=== PATIENT | female | born 1960 | race Caucasian/White ===

== ENCOUNTER 2025-05-04 13:45 | Emergency (ER) | payer MEDICARE, SELFPAY ==
--- NOTE | ~2025-05-04 | CT_ITS ---
CLINICAL HISTORY: WBC [id number] - previously injected for CTA chest(PE) CT abdomen and pelvis without contrast Comparison: None provided Findings: There is minimal atelectasis. The patient is status post cholecystectomy. The liver, pancreas, and adrenal glands are unremarkable. There are small splenic capsular calcifications. Spleen is otherwise unremarkable. There is excreted contrast in the renal collecting systems. There is no hydronephrosis. The appendix is normal. There is a lisxkuxm-ll-owtua amount of stool in the colon. The gastrointestinal tract is otherwise unremarkable. There is no free fluid, fluid collection, or free air. The aorta is normal in diameter. There are no enlarged lymph nodes. There is excreted contrast within the bladder. The bladder is otherwise unremarkable. There is no fracture or suspicious lytic or sclerotic lesion. IMPRESSION: 1. No acute abnormality in the abdomen or pelvis. 2. Peaheigp-ez-xkwtq amount of stool in the colon. Correlate for constipation. This document has been electronically signed by: Vimal Dhillon MD on 05/05/2025 00:48:16
--- NOTE | ~2025-05-04 | CT_ITS ---
CLINICAL HISTORY: PE r o CT angiography chest with contrast. 3D Postprocessing. Comparison: None provided Findings: The heart is normal size. RV/LV ratio is normal. Unremarkable thoracic aorta and great vessels. No aneurysm. No main or segmental pulmonary emboli identified. Hiatal hernia. No consolidation or effusion. Prior cholecystectomy. No acute fractures. Diffuse idiopathic skeletal hyperostosis IMPRESSION: 1. No main or segmental pulmonary emboli identified. This document has been electronically signed by: Bob Montana MD on 05/04/2025 22:52:23
--- NOTE | ~2025-05-04 | XR_ITS ---
EXAMINATION: XR CHEST CLINICAL INFORMATION: Pneumonia? COMPARISON: None available. TECHNIQUE: 2 views of the chest were obtained. FINDINGS: The cardiac, hilar, and mediastinal contours are normal. The lungs are clear bilaterally. There is no pneumothorax or pleural effusion. There is no focal osseous or soft tissue abnormality. There are cholecystectomy clips. XR/XR chest 2V IMPRESSION: No active pulmonary disease. Electronically signed by: Olvin Vallejo MD 05/04/2025 04:40 PM [facility]AZ
[2025-05-04 16:09] VITALS: BP 195/85; PULSE 136; RESP 18; TEMP 36.6; O2SAT 97; BMI 33.0
--- NOTE | 2025-05-04 16:14 | ECG_ITS ---
Test Reason : BREAST PAIN Blood Pressure : */* mmHG Vent. Rate : 134 BPM Atrial Rate : 134 BPM P-R Int : 154 ms QRS Dur : 100 ms QT Int : 292 ms P-R-T Axes : 38 -45 84 degrees QTcB Int : 436 ms Sinus tachycardia Left axis deviation Minimal voltage criteria for LVH, may be normal variant ( [place]lois product ) Anterior infarct , age undetermined Abnormal ECG No previous ECGs available Referred By: Mj Barrow Electronically Signed By: Gabriel Galarza
--- NOTE | 2025-05-04 16:15 | ED_ITS ---
HPI - General Adult General Chief complaint: Chest Pain Stated complaint: breast pain, arm pain, sent by PCP Time Seen by Provider: 05/04/25 20:20 History of Present Illness ED Provider: Matilde Boucher NP [facility] narrative: 64-year-old female medical history significant for hyperlipidemia, diabetes on metformin, hypertension, prior use of Ozempic but no longer on this medication presents to the ED with chief complaint of bilateral chest discomfort as well as radiation to the right arm and shoulder ongoing for about a week. She reports the pain began after traveling about 5-1/2 hours by car to [place]. No calf pain or tenderness, swelling. Patient reports dyspnea on exertion as well as right-sided chest discomfort, with radiation into the shoulder. There was no posterior shoulder pain. No shortness of breath at rest. Denies any substernal chest pain or pressure. No chest heaviness. No abdominal pain, nausea or vomiting, urinary complaints. Related Data Allergies Allergy/AdvReac Type Severity Reaction Status Date / Time codeine Allergy Unknown Verified 05/04/25 16:12 sulfamethoxazole (From Allergy Unknown Verified 05/04/25 16:12 Bactrim) trimethoprim (From Bactrim) Allergy Unknown Verified 05/04/25 16:12 Review of Systems 2 Review of Systems: ROS is otherwise negative unless mentioned in HPI. [facility] Social History Social History Alcohol intake: current Alcohol intake frequency: holidays/special occasions only Smoked in Last 30 Days: No Use of substances other than those prescribed or required for medical reasons: No Advance Directives: No Advance Directives Information Provided: No Do you have a plan to hurt others: No Plan Physical Exam ED Exam Exam: Nursing notes and vital signs reviewed. Constitutional: Well-appearing, NAD. Alert. Oriented X3. Eyes: EOMI. ENT: Pharynx normal. Neck: Normal inspection. Neck supple. CVS: Tachycardic heart rate and normal regular rhythm. Pulses normal. Respiratory: No respiratory distress. Breath sounds normal. Abdomen: Soft and nontender, nondistended. Skin: Skin warm and dry. Normal skin color. Extremities: No lower extremity edema. Neuro: Oriented X 3. No motor deficit. Vital Signs: Vital Signs - 24 hr 05/04/25 16:09 05/04/25 20:42 05/04/25 23:23 Temperature 98 F 99.8 F 98.6 F Pulse Rate 136 H 135 H 106 H Respiratory Rate 18 16 20 Blood Pressure 195/85 H 125/81 131/66 Pulse Oximetry 97 95 96 Oxygen Delivery Method Room Air 05/05/25 00:00 05/05/25 01:00 Temperature 98.6 F 98.6 F Pulse Rate 95 95 Respiratory Rate 20 20 Blood Pressure 131/66 131/66 Pulse Oximetry 96 96 Oxygen Delivery Method Room Air Room Air BMI result Body Mass Index 33.0 Course Course Course Narrative: RME: 64 year female presents to ED for breast pain arm pain and chest pain. Patient is found to be tachycardic in triage. Patient denies any URI symptoms. EKG labs ordered Reevaluation(s) Reevaluation #1: 3:59 AM 05/05/2025 (Bertha Brown MD): I saw this patient with the physician senior underwriting assistant. The patient is a very pleasant 64-year-old with a history of type 2 diabetes who presents with chest pains that has been bothering her for about 2 weeks. She has not had any fevers. Physical exam is unremarkable and she does not appear obviously ill. A CT scan to look for a pulmonary embolism has been done that was negative. [place] [id number]. She also has an elevated platelet count in the 600s. CRP is very elevated at 23. An abdominal CT was also obtained that does not show any explanation for the patient has abnormal labs. Ultimately I felt the patient looks well enough for discharge. I do not know why she has a leukocytosis, thrombocytosis, and a very elevated CRP but there was no evidence of an acute coronary syndrome pulmonary embolism, pneumonia, or other concerning finding that might be an explanation for symptoms she has had over the last few weeks. She looks quite well and I think she may be discharged. Perhaps she has some kind of an autoimmune disorder. She should follow up promptly with her PCP to discuss these findings. Medications Administered Discontinued Medications Generic Name Dose Route Start Last Admin Trade Name Freq PRN Reason Stop Dose Admin Acetaminophen 975 mg 05/04/25 20:27 05/04/25 20:46 Acetaminophen 325 Mg Tablet PO 05/04/25 20:28 975 mg ONCE ONE Administration Sodium Chloride 1,000 mls @ 999 mls/hr 05/04/25 20:21 05/04/25 23:33 Ns IV 05/04/25 21:21 Infused .Q1H1M ONE Infusion Iohexol 65 ml 05/04/25 22:03 05/04/25 22:06 Iohexol 350 Mg/Ml 100 Ml Infus..Btl IV 05/04/25 22:04 65 ml ONCE ONE Administration Ketorolac Tromethamine 15 mg 05/04/25 23:06 05/04/25 23:33 Ketorolac Tromethamine 15 Mg/Ml Vial IVPUSH 05/04/25 23:07 15 mg ONCE ONE Administration Medical Decision Making Medical Decision Making MDM Narrative: 8:31 PM 05/04/2025 (Matilde Boucher, LEXII): Upon my initial assessment of this patient, I have concern that she has significant leukocytosis to 18.3. This is nonspecific, I have nothing to correlate this with currently. Anemia at 11.14 hemoglobin. No prior. Her platelet counts also elevated at 631. The x-ray of the chest shows no acute pneumonia. She is tachycardic in the 130s. Without hypoxia. Afebrile. High clinical suspicion for PE. We will obtain a CTA of the chest PE rule out. Though also concerning for underlying infection given the leukocytosis. We will add on SARS. Will repeat troponin, initial is flat. EKG is sinus tachycardia. We will administer a fluid bolus. At this time I do not have clinical concern for sepsis. Will add blood cultures, lactic acid prophylactically. 11:24 PM-- CTA of the chest shows no evidence of PE, as well as no underlying infection. Viral panel was negative. Troponin is flat x2. This appears to be more musculoskeletal pain in nature in terms of the right-sided chest discomfort. She is agreeable with the discharge plan. She is no longer tachycardic, heart rates are in the low 90s. I do have suspicion that her tachycardia was related to anxiety about being in the hospital, as she was urged by her PCP to come for additional evaluation. She can take Tylenol, ibuprofen [id number] at home as needed for pain. She has now had 2- troponins, her proBNP is normal. There is no indication for additional workup. Her leukocytosis is nonspecific. Likely reactive. We will proceed with discharge plan, outpatient follow up with PCP. 11:38 PM-- I discussed the patient case with the attending provider and subsequently ordered a CRP level. This is also high, concerning for underlying malignancy of some sort. There is a small, circular nonspecific rash on the right upper quadrant of the abdomen. Her abdominal exam is benign. With concern for underlying malignancy, we will proceed with a noncontrast CT imaging of the abdomen, pelvis and reassess. 12:53 AM: The CT of the abdomen, pelvis shows no acute pathology. She may have an underlying autoimmune disease. We will proceed with discharge plan as previously discussed with close outpatient follow up with primary care. Patient is agreeable. Differential Diagnosis Differential Diagnoses: The differential diagnosis associated with the presentation includes PE, multifocal pneumonia, viral illness Admission/Observation Consideration of admission/observation: Escalation of care including admission/observation considered Lab Data MDM Lab Attestation statement: I reviewed the patient's lab results. (Leukocytosis to 18.) 05/04/25 16:25 05/04/25 16:25 Labs: Lab Results 05/04/25 05/04/25 05/04/25 Range/Units 16:25 20:58 21:18 WBC 18.3 H (4.8-10.8) X10*3/uL RBC 3.99 L (4.20-5.50) X10*6/uL Hgb 11.1 L (12.0-16.0) g/dl Hct 34.9 L (37.0-47.0) % MCV 87.5 (80.0-98.0) fL MCH 27.8 (27.0-33.0) pg MCHC 31.8 (31.0-35.0) g/dl RDW 12.8 (11.0-16.0) % Plt Count 631 H (160-400) X10*3/uL MPV 7.7 L (9.4-12.3) fL Immature Gran % (Auto) 4.1 H (0.0-0.4) % Neut % (Auto) 76.2 H (45-73) % Lymph % (Auto) 9.1 L (20-40) % [place] % (Auto) 8.2 (2-11) % Eos % (Auto) 1.8 (0-4) % Baso % (Auto) 0.6 (0-2) % Lymph # (Auto) 1.7 (1.2-4.9) X10*3/uL [place] # (Auto) 1.5 H (0.1-1.2) X10*3/uL Eos # (Auto) 0.3 (0.0-0.4) X10*3/uL Baso # (Auto) 0.1 (0.0-0.2) X10*3/uL Abs Immat Gran (auto) 0.75 H (0.00-0.03) X10*3/uL Absolute Neuts (auto) 13.9 H (2.0-8.3) x10*3/uL Absolute Nucleated RBC 0.000 (0.0-0.012) X10*3/uL Nucleated RBC % (auto) 0.0 (0.0-0.2) /100WBC Neutrophils % (Manual) 81 H (45-73) % Band Neutrophils % 0 L (3-5) % Lymphocytes % (Manual) 9 L (20-40) % Atypical Lymphs % (Man) 1 (0-6) % Monocytes % (Manual) 9 (2-11) % Abs Neuts (Manual) 14.8 H (2.0-8.3) X10*3/uL Lymphocytes # (Manual) 1.6 (1.2-4.9) X10*3/uL Atyp Lymphs # (Manual) 0.2 x10*3/uL Monocytes # (Manual) 1.6 H (0.1-1.2) X10*3/uL Toxic Granulation PRESENT Toxic Vacuolation PRESENT Platelet Estimate INCREASED (NORMAL) Large Platelets PRESENT Plt Morphology Comment NOTED RBC Morphology NOTED [place] Cells 2+ (3-5) /OIF PT 14.5 H (11.2-13.5) SEC INR 1.2 H (0.9-1.1) APTT 35.2 H (26.7-34.1) SEC Sodium 137 (135-145) mmol/L Potassium 3.8 (3.3-5.1) mmol/L Chloride 102 (96-108) mmol/L Carbon Dioxide 17 L (22-29) mmol/L Anion Gap 22 H (12-20) BUN 14 (9-16) mg/dL Creatinine 0.80 (0.5-1.4) mg/dL Estim Creat Clear Calc 63.2 Estimated GFR > 60 Random Glucose 114 (60-115) mg/dL Lactic Acid 1.0 (0.5-2.0) mmol/L Calcium 11.0 H (8.4-10.2) mg/dL Total Bilirubin 0.3 (0.0-1.0) mg/dL AST 19 (5-31) U/L ALT < 6 (0-31) U/L Alkaline Phosphatase 45 (39-117) U/L Troponin I High Sens 4.7 5.9 (<3.5-17.0) ng/L C-Reactive Protein 29.51 H (< or = 0.50) mg/dL NT-Pro-B Natriuret Pep 198.8 (<300) pg/mL Total Protein 7.3 (6.5-8.0) g/dL Albumin 3.4 L (3.5-5.0) g/dL Urine Color Urine Appearance Urine pH (5.0-9.0) Ur Specific [place] (1.005-1.025) Urine Protein (Neg-Trace) mg/dL Urine Glucose (UA) (Negative) mg/dL Urine Ketones (Negative) mg/dL Urine Blood (Negative) Urine Nitrite (Negative) Ur Leukocyte Esterase (Negative) Urine RBC (0-2) /HPF Urine WBC (0-5) /HPF Ur Squamous Epith Cells (0-2) /HPF Urine Bacteria (None Seen) Hyaline Casts (0-2) /LPF Influenza Type A (PCR) NEGATIVE (Negative) Influenza Type B (PCR) NEGATIVE (Negative) RSV RNA Qual (PCR) NEGATIVE (Negative) SARS-CoV-2 RNA (RT-PCR) NEGATIVE (Negative) 05/05/25 Range/Units 00:59 WBC (4.8-10.8) X10*3/uL RBC (4.20-5.50) X10*6/uL Hgb (12.0-16.0) g/dl Hct (37.0-47.0) % MCV (80.0-98.0) fL MCH (27.0-33.0) pg MCHC (31.0-35.0) g/dl RDW (11.0-16.0) % Plt Count (160-400) X10*3/uL MPV (9.4-12.3) fL Immature Gran % (Auto) (0.0-0.4) % Neut % (Auto) (45-73) % Lymph % (Auto) (20-40) % [place] % (Auto) (2-11) % Eos % (Auto) (0-4) % Baso % (Auto) (0-2) % Lymph # (Auto) (1.2-4.9) X10*3/uL [place] # (Auto) (0.1-1.2) X10*3/uL Eos # (Auto) (0.0-0.4) X10*3/uL Baso # (Auto) (0.0-0.2) X10*3/uL Abs Immat Gran (auto) (0.00-0.03) X10*3/uL Absolute Neuts (auto) (2.0-8.3) x10*3/uL Absolute Nucleated RBC (0.0-0.012) X10*3/uL Nucleated RBC % (auto) (0.0-0.2) /100WBC Neutrophils % (Manual) (45-73) % Band Neutrophils % (3-5) % Lymphocytes % (Manual) (20-40) % Atypical Lymphs % (Man) (0-6) % Monocytes % (Manual) (2-11) % Abs Neuts (Manual) (2.0-8.3) X10*3/uL Lymphocytes # (Manual) (1.2-4.9) X10*3/uL Atyp Lymphs # (Manual) x10*3/uL Monocytes # (Manual) (0.1-1.2) X10*3/uL Toxic Granulation Toxic Vacuolation Platelet Estimate (NORMAL) Large Platelets Plt Morphology Comment RBC Morphology [place] Cells /OIF PT (11.2-13.5) SEC INR (0.9-1.1) APTT (26.7-34.1) SEC Sodium (135-145) mmol/L Potassium (3.3-5.1) mmol/L Chloride (96-108) mmol/L Carbon Dioxide (22-29) mmol/L Anion Gap (12-20) BUN (9-16) mg/dL Creatinine (0.5-1.4) mg/dL Estim Creat Clear Calc Estimated GFR Random Glucose (60-115) mg/dL Lactic Acid (0.5-2.0) mmol/L Calcium (8.4-10.2) mg/dL Total Bilirubin (0.0-1.0) mg/dL AST (5-31) U/L ALT (0-31) U/L Alkaline Phosphatase (39-117) U/L Troponin I High Sens (<3.5-17.0) ng/L C-Reactive Protein (< or = 0.50) mg/dL NT-Pro-B Natriuret Pep (<300) pg/mL Total Protein (6.5-8.0) g/dL Albumin (3.5-5.0) g/dL Urine Color Yellow Urine Appearance Clear Urine pH 5.5 (5.0-9.0) Ur Specific [place] >= 1.030 H (1.005-1.025) Urine Protein 30 (1+) H (Neg-Trace) mg/dL Urine Glucose (UA) >=1000 H (Negative) mg/dL Urine Ketones >=160 (Negative) mg/dL Urine Blood Negative (Negative) Urine Nitrite Negative (Negative) Ur Leukocyte Esterase Negative (Negative) Urine RBC 0-2 (0-2) /HPF Urine WBC 0-5 (0-5) /HPF Ur Squamous Epith Cells 0-2 (0-2) /HPF Urine Bacteria None Seen (None Seen) Hyaline Casts 0-2 (0-2) /LPF Influenza Type A (PCR) (Negative) Influenza Type B (PCR) (Negative) RSV RNA Qual (PCR) (Negative) SARS-CoV-2 RNA (RT-PCR) (Negative) Independent Interpretation I performed an independent interpretation of an: EKG Interpretation: Rate: 134 Rhythm: Sinus tachycardia [place]: 38/-45/84 Normal P waves. Normal ANDIE. Normal QRS complex. ST T wave : no dep, elev qTC: 436 prior studies: none previous for comparison The study has been interpreted contemporaneously by me. L I have reviewed the patient's imaging and agree with the radiologist's findings. Radiology Impression Discussion of test interpretation with radiology: I have reviewed the radiologist's reading. Radiologist Impression: CT Abdomen/Pelvis WO IMPRESSION: 1. No acute abnormality in the abdomen or pelvis. 2. [id number]-[id number] amount of stool in the colon. Correlate for constipation. CTA Chest IMPRESSION: 1. No main or segmental pulmonary emboli identified. XR/XR chest 2V IMPRESSION: No active pulmonary disease. Independent Historian Clinical information obtained from an independent historian. History obtained from or confirmed by: Friend External Record Review None available Chronic Conditions Patient?s care impacted by: Hypertension and Other (HLD) Social Determinants Patient?s care significantly limited by Social Determinants of Health including: Problems related to primary support group Discharge Plan Discharge Clinical Impression: Atypical chest pain Patient Disposition: Home, Self-Care Instructions: Chest Wall Pain (ED) Additional Instructions: As we discussed, your workup today was overall reassuring. You had a CT of the chest which showed no evidence of blood clots, or pneumonia. We also obtained a CT of your abdomen, pelvis which showed no acute abnormality. In discussion with your provider, please discuss that you had an elevated white blood cell count. This is very nonspecific, and may be due to stress on the body. Please have this rechecked within 1 week. Additionally, your platelet count was noted to be elevated at 631. Please also have this rechecked outpatient. Your CRP level was also high. The cause is unclear. Your viral panel was negative for COVID, flu, RSV. Please discuss all of this information with your primary care provider. You may have underlying autoimmune disease that needs additional workup. With any worsening complaints at any time, please seek re-evaluation in the ED. Referrals: Little Stark PA [Primary Care Provider, Internal Medicine] Interventions: ED Discharge Assessment Last Done: 05/05/25 01:00 Discharge Date/Time: 05/05/25 01:18 Print Language: Setswana
[2025-05-04 16:29] LABS: MANUAL DIFF FLAG NO
[2025-05-04 16:32] LABS: Hematocrit 34.9 % (37.0-47.0); Hemoglobin 11.1 g/dl (12.0-16.0); Imm Gran Abs Auto 0.75 X10*3/uL (0.00-0.03); Imm Gran Pct Auto 4.1 % (0.0-0.4); Lymphocytes Absolute Auto 1.7 X10*3/uL (1.2-4.9); Mean Corpuscular HGB Conc 31.8 g/dl (31.0-35.0); Mean Corpuscular Hemoglobin 27.8 pg (27.0-33.0); Mean Corpuscular Volume 87.5 fL (80.0-98.0); NRBC Abs Auto 0.000 X10*3/uL (0.0-0.012); NRBC Pct Auto 0.0 /100WBC (0.0-0.2); Platelet Count 631 X10*3/uL (160-400); Red Blood Count 3.99 X10*6/uL (4.20-5.50); White Blood Count 18.3 X10*3/uL (4.8-10.8)
[2025-05-04 16:36] LABS: INTERNATIONAL NORM RATIO 1.2 (0.9-1.1); Prothrombin Time 14.5 SEC (11.2-13.5)
[2025-05-04 16:38] LABS: Partial Thromboplastin Time 35.2 SEC (26.7-34.1)
[2025-05-04 16:58] LABS: Alanine Aminotransferase < 6 U/L (0-31); Albumin Level 3.4 g/dL (3.5-5.0); Alkaline Phosphatase 45 U/L (39-117); Anion Gap 22 (12-20); Aspartate Amino Transferase 19 U/L (5-31); Blood Urea Nitrogen 14 mg/dL (9-16); Calcium 11.0 mg/dL (8.4-10.2); Carbon Dioxide 17 mmol/L (22-29); Chloride 102 mmol/L (96-108); Creatinine Clr Calc Pharmacy 63.2; Estimated Glomerular Filt Rate > 60; Potassium 3.8 mmol/L (3.3-5.1); Sodium 137 mmol/L (135-145); Total Protein 7.3 g/dL (6.5-8.0)
[2025-05-04 17:06] LABS: Troponin-I High Sensitivity 4.7 ng/L (<3.5-17.0)
[2025-05-04 17:17] LABS: NT Pro B Type Natriuretic Pept 198.8 pg/mL (<300)
--- OUTSIDE RECORDS SUMMARY | 2025-05-04 20:36 | XMS_ITS ---
Author Name [facility] Organization Unknown History of Medication Use Medication Directions Dispensed Refills Start Date End Date Stat us OMEprazole (PriLOSEC) 20 MG capsule TAKE 1 CAPSULE BY MOUTH EVERY DAY IN THE MORNING BEFORE BREAKFAST 09/05/2023 active lisinopril (PRINIVIL,ZeSTRIL) 2.5 MG tablet Take 1 tablet (2.5 mg total) by mouth daily. 08/13/2023 active atorvastatin (LIPITOR) 10 MG tablet Take 1 tablet (10 mg total) by mouth daily. 12/04/2021 active Gavilyte-C 240 gram-22.72 gram-6.72 gram-5.84 gram oral solution TAKE 8 OUNCE BY MOUTH DIRECTED TAKE 8 GLASSES EVERY 15-20 MINUTES UNTIL DONE 04/30/2022 completed pioglitazone 15 mg tablet 04/30/2022 completed pioglitazone 30 mg tablet 04/30/2022 completed azithromycin 250 mg tablet TAKE 2 TABLETS BY MOUTH TODAY, THEN TAKE 1 TABLET DAILY FOR 4 DAYS 01/22/2021 completed ProAir HFA 90 mcg/actuation aerosol inhaler 01/21/2020 completed albuterol sulfate HFA 90 mcg/actuation aerosol inhaler INHALE 2 PUFFS BY MOUTH EVERY 6 HOURS NEEDED FOR WHEEZE active amoxicillin 500 mg capsule TAKE 1 CAPSULE BY MOUTH EVERY 8 HOURS AROUND THE CLOCK active atorvastatin 10 mg tablet TAKE 1 TABLET ONCE DAILY active Basaglar KwikPen U-100 Insulin 100 unit/mL (3 mL) subcutaneous INJECT 16 UNITS EVERY NIGHT AT BEDTIME active Dexcom G7 Sensor device USE TO CHECK SUGAR active glipizide 5 mg tablet TAKE 1 & 1/2 TABLETS BY MOUTH IN THE MORNING, TAKE 2 TABLETS IN THE EVENING active glyburide 5 mg tablet TAKE 1 AND 1/2 TABLETS BY MOUTH EVERY MORNING AND 2 TABLETS EVERY NIGHT active Jardiance 25 mg tablet TAKE 1 TABLET ONCE DAILY ASDIRECTED. active Lantus Solostar U-100 Insulin 100 unit/mL (3 mL) subcutaneous pen INJECT 16 UNITS DAILY DIRECTED active lisinopril 2.5 mg tablet active metformin 1,000 mg tablet active omeprazole 20 mg capsule,delayed release TAKE 1 CAPSULE BY MOUTH EVERY DAY IN THE MORNING BEFORE BREAKFAST active albuterol (PROVENTIL HFA; VENTOLIN HFA) 108 (90 Base) MCG/ACT inhaler Inhale 2 puffs 4 times daily (every 6 hours) as needed. active Cetirizine HCl (ZyrTEC Allergy) 10 MG Cap Take 10 mg by mouth daily. active empagliflozin (Jardiance) 25 MG tablet Take 1 tablet (25 mg total) by mouth daily. active glyBURIDE (DIAbeta) 5 mg tablet 1.5 tabs po in am and 2 tabs po in pm active insulin glargine (insulin glargine, BASAGLDWAIN CORCORANIKPEN,) 100 units/mL prefilled pen injection Inject 16 Units under the skin daily. active metFORMIN (GLUCOPHAGE) 1000 MG tablet Take 1 tablet (1,000 mg total) by mouth 2 times a day. active Allergies Allergen Reaction Severity Comment Documented Date Source Statu s SULFA ANTIBIOTICS UNKNOWN/PATIENT AND FAMILY UNABLE TO DEFINE 08/13/2023 [facility] active CODEINE UNKNOWN/PATIENT AND FAMILY UNABLE TO DEFINE [facility] DULAGLUTIDE NAUSEA ONLY [facility] BACTRIM [facility] SUBSTANCE WITH SULFONAMIDE STRUCTURE AND ANTIBACTERIAL MECHANISM OF ACTION (SUBSTANCE) [facility] Problems Problem Status Onset Date Problem Type Date of Resoluti on Source Calcific tendinitis of shoulder active 2022-03-05 ProblemAct [facility] Polyp of colon active 2022-03-[address] Type 2 diabetes mellitus active 2022-03-05 ProblemAct [facility] Mixed hyperlipidemia active 2022-03-05 ProblemAct [facility] Immunizations Vaccine Date Source Lot Number Status Influenza, MDCK, quadrivalent, PF 03/07/2023 [facility] [id number] completed Pneumococcal conjugate PCV20 , polysaccharide [id number] conjugate, adjuvant, PF 12/18/2022 [facility] c ompleted zoster recombinant 05/20/2022 [facility] comple malka zoster recombinant 12/18/2021 [facility] comple malka Tdap 12/15/2021 [facility] completed Influenza Inactivated/Split Preservative Free IM 02/10/2020 [facility] completed pneumococcal polysaccharide PPV23 09/29/2010 [facility] completed Encounters Encounter Type Encounter Reason Primary Diagnosis Location Date Ambulatory Follow-up Follow-up [facility] 01/27/2025 Ambulatory 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 [facility] 05/08/2023 Ambulatory Encounter for screening mammogram for malignant neoplasm of breast [facility] 09/04/2022 Ambulatory [facility] 05/03/2022 Ambulatory Encounter for screening mammogram for malignant neoplasm of breast [facility] 04/26/2021 Ambulatory [facility] 01/25/2021 Care Team Organization Name Specialty Phone Email Start Date End Da te [facility] DONALD Primary Care 01/27/2025 [facility] ANIKA BENNETT Primary Care 08/13/2023 [employer] BRUNILDA REYES Primary Care 04/26/2021 02/26/20 [facility] BRUNILDA REYES Primary Care 04/26/2021 04/26/20 21 [facility] 02/15/2021 [facility] 01/25/2021 01/25/2021
--- OUTSIDE RECORDS SUMMARY | 2025-05-04 20:36 | XMS_ITS | Encounter Summary ---
Author Organization [facility] Address [address] [place] [address] Care Team Providers Care Wool Handler Name Role Phone Little Stark PA-C Primary Care Provi harpreet Fabiana Rodríguez MD Unavailable [phone]- [phone] Encounter Details Date Type Department Care Team (Late st Contact Info) Description 06/18/2024 Scanned Document [facility] [address] [place] [address] Endocrinology, Scan Social History Tobacco Use Types Packs/Day Years Used Date Smoking Tobacco: Never Smokeless Tobacco: Never Alcohol Use Standard Drinks/Week Comments Not Currently 0 (1 standard drink = 0.6 oz pur e alcohol) [facility] Utilities Answer Date Recorded In the past 12 months has [facility] electric, gas, oil, or water company threatened to shut off services in your home? No 04/06/2024 Social Connection and Isolation Panel Answer Date Recorded In a typical week, how many times do you talk on the phone with family, friends, or neighbors? Once a week 04/06/2024 Frequency of Social Gatherings with Friends and Family Not on file 04/06/2024 Attends [employer] Services Not on file 04/06 Active Member of Clubs or Organizations Not on f ile 04/06/2024 Attends Club or Organization Meetings Not on aishwarya e 04/06/2024 Marital Status Not on file 04/06/2024 AUDIT-C Answer Date Recorded Q1: How often do you have a drink containing alcohol? Monthly or less 04/06/2024 Q2: How many drinks containi ng alcohol do you have on a typical day when you are drinking? Patient does not drink Frequency of Binge Drinking Not on file 03/20 PHQ-2 Answer Date Recorded PHQ-2 Total Score 0 12/26/2023 Hunger Vital Sign Answer Date Recorded Within the past 12 months, y ou worried that your food would run out before you got the money to buy more. Never true 04/06/20 24 Within the past 12 months, t he food you bought just didn't last and you didn't have money to get more. Never true 04/06/2024 PRAPARE - Transportation Answer Date Re corded In the past 12 months, has l ack of transportation kept you from medical appointments or from getting medications? No 03/20 In the past 12 months, has l ack of transportation kept you from meetings, work, or from getting things needed for daily living? No 04/06/2024 Housing Stability Vital Sign Answer Rodney e Recorded In the last 12 months, was t here a time when you were not able to pay the mortgage or rent on time? No 04/06/2024 In the past 12 months, how m any times have you moved where you were living? 0 04/06/2024 At any time in the past 12 m [facility], were you homeless or living in a intermediate (including now)? No 04/06/2024 Physical Activity Answer Date Recorded On average, how many days pe r week do you engage in moderate to strenuous exercise (like a brisk walk)? 0 days 12/26/2023 On average, how many minutes do you exercise per day at this level? 0 min 12/26/2023 Education Answer Date Recorded What is the highest level of school you have completed or the highest degree you have received? Associate degree: occupational, technical, or vocational program 04/06/2024 Comments Unknown Sex and Gender Information Value Date Recorded Sex Assigned at Female 07/26/2022 8:38 AM EST Legal Sex Female 5:29 PM EDT Gender Identity Female 07/26/2022 8:38 AM EST Sexual Orientation Heterosexual (straight) 07/26 8:38 AM EST documented as of this encounter Plan of Treatment Upcoming Encounters Date Type Department Care Team (Late st Contact Info) Description 05/14/2025 1:30 PM EST Office Visit [facility] [address] [place] [phone] Geri Padilla APRN [address] [facility] [address] [place] [address] 05/26/2025 11:30 AM EST Office Visit [facility] [address] [place] [address] Little Stark PA-C [address] [place] [address] documented as of this encounter Visit Diagnoses Not on filedocumented in this encounter Care Teams Wool Handler Relationship Specialty Start Date End Date Little Stark PA-C [address] [place] [address] PCP - General Internal Medicine 08/13/23 Fabiana Rodríguez MD [address] [place] [address] Dr TeixeirafieldKEITH [id number] Endocrinology 08/13/23 documented as of this encounter
--- OUTSIDE RECORDS SUMMARY | 2025-05-04 20:36 | XMS_ITS | Encounter Summary ---
Author Organization [facility] Address [address] [place] [address] Care Team Providers Care Employment Law Attorney Name Role Phone Little Stark PA-C Primary Care Provi harpreet Fabiana Rodríguez MD Unavailable [phone]- [phone] Encounter Details Date Type Department Care Team (Late st Contact Info) Description 09/18/2023 Scanned Document [facility] GASTRO SCAN Gastroenterology, Scan Social History Tobacco Use Types Packs/Day Years Used Date Smoking Tobacco: Never Smokeless Tobacco: Never Alcohol Use Standard Drinks/Week Comments Not Currently 0 (1 standard drink = 0.6 oz pur e alcohol) PHQ-2 Answer Date Recorded PHQ-2 Total Score 0 08/13/2023 Comments Unknown Sex and Gender Information Value [...] Description 05/14/2025 1:30 PM EST Office Visit [address] [place] [address] Geri Padilla, GAGE [address] [facility] [address] [place] [address] 05/26/2025 11:30 AM EST Office Visit [facility] [address] [place] [address] Little Stark PA-C [address] [place] [address] documented as of this encounter Visit Diagnoses Not on filedocumented in this encounter Care Teams Employment Law Attorney Relationship Specialty Start Date End Date Little Stark PA-C [address] [place] [address] PCP - General Internal Medicine 08/13/23 Fabiana Rodríguez MD [address] [place] [address] [place] [address] Endocrinology 08/13/23 documented as of this encounter
--- OUTSIDE RECORDS SUMMARY | 2025-05-04 20:36 | XMS_ITS | Encounter Summary ---
Author Organization [facility] Address [address] [place] [address] Care Team Providers Care Manager Mountain Name Role Phone Little Stark PA-C Primary Care Provi harpreet Fabiana Rodríguez MD Unavailable [phone]- [phone] Encounter Details Date Type Department Care Team (Late st Contact Info) Description 11/28/2023 Scanned Document [facility] [address] [place] [id number] Little Stark PA-C [address] [place] [address] Social History Tobacco Use Types Packs/Day Years [...] Description 05/14/2025 1:30 PM EST Office Visit [address] [place] [address] Geri Padilla APRN [address] [facility] [address] [place] [address] 05/26/2025 11:30 AM EST Office Visit [facility] [place] [address] [place] [address] Little Stark PA-C 100 [place] [address] documented as of this encounter Visit Diagnoses Not on filedocumented in this encounter Care Teams Manager [place] Relationship Specialty Start Date End Date Little Stark PA-C [address] [place] [address] PCP - General Internal Medicine 08/13/23 Fabiana Rodríguez MD [address] [place] [address] [place] [address] Endocrinology 08/13/23 documented as of this encounter
--- OUTSIDE RECORDS SUMMARY | 2025-05-04 20:36 | XMS_ITS | Encounter Summary ---
Author Organization [facility] Address [address] [place] [address] Care Team Providers Care Irs Agent Name Role Phone Little Stark PA-C Primary Care Provi harpreet Fabiana Rodríguez MD Unavailable [phone]- [phone] Encounter Details Date Type Department Care Team (Late st Contact Info) Description 11/26/2023 Scanned Document [facility] [address] [place] [address] Endocrinology, Scan Social History Tobacco Use Types [...] Description 05/14/2025 1:30 PM EST Office Visit [address] [place] [address] Geri Padilla, GAGE 100 [facility] 101 [place] [address] 05/26/2025 11:30 AM EST Office Visit [facility] [address] [place] [phone] Little Stark PA-C [address] [place] [address] documented as of this encounter Visit Diagnoses Not on filedocumented in this encounter Care Teams Irs Agent Relationship Specialty Start Date End Date Little Stark PA-C [address] [place] [address] PCP - General Internal Medicine 08/13/23 Fabiana Rodríguez MD [address] [place] [address] [place] [address] Endocrinology 08/13/23 documented as of this encounter
--- OUTSIDE RECORDS SUMMARY | 2025-05-04 20:37 | XMS_ITS | Clinical Summary ---
Author Organization [facility] Address [address] [place] [address] Care Team Providers Care Ski Edge Painter Name Role Phone Anika Stark PA-C Primary Care Provi harpreet Fabiana Rodríguez MD Unavailable [phone] Allergies Active Allergy Reactions Criticality Noted Date Comments Codeine GI Intolerance/Nausea/Vomiting,Unknown /Patient and Family Unable to Define Medium 08/13/2023 Dulaglutide GI Intolerance/Nausea/Vomiting,Nausea Only Low 08/13/2023 Sulfa Antibiotics Unknown/Patient and Family Unable to Define Medium 08/13/2023 Medications atorvastatin (LIPITOR) 10 MG tablet Take 1 tablet (10 mg total) by mouth daily. 12/04/2021 Active Cetirizine HCl (ZyrTEC Allergy) 10 MG Cap Take 10 mg by mouth daily. Active empagliflozin (Jardiance) 25 MG tablet Take 1 tablet (25 mg total) by mouth daily. Active glyBURIDE (DIAbeta) 5 mg tablet 1.5 tabs po in am and 2 tabs po in pm Active insulin glargine (insulin glargine, BASAGLAR KWIKPEN,) 100 units/mL prefilled pen injection Inject 16 Units under the skin daily. Active metFORMIN (GLUCOPHAGE) 1000 MG tablet Take 1 tablet (1,000 mg total) by mouth 2 times a day. Active albuterol (PROVENTIL HFA; VENTOLIN HFA) 108 (90 Base) MCG/ACT inhalerIndication s:Chest congestion,Mild intermittent asthma without complication Inhale 2 puffs 4 times daily (every 6 hours) as needed for wheezing. 1 each 5 04/06/2024 Active lisinopril (PRINIVIL,ZeSTRIL ) 2.5 MG tabletIndications :Type 2 diabetes mellitus without complication, without long-term current use of insulin (HCC) TAKE 1 TABLET BY MOUTH EVERY DAY 90 tablet 3 07/31/2024 Active Active Problems Problem Noted Date Diagnosed Date Severe obesity (BMI 35.0-39.9) with comorbidity 01/27/2025 Mild intermittent asthma without complication Calcific tendinitis of shoulder 03/05/2022 08/13/2023 Mixed hyperlipidemia 03/05/2022 08/13/2023 Polyp of colon 03/05/2022 08/13/2023 Type 2 diabetes mellitus 03/05/2022 024 Assessment & Plan (01/27/2025 8:27 AM EDT): Being followed by Addy. Diabetes is not controlled as well as it could be. Patient admits she is not as careful with her diet and is not exercising. We discussed GLP-1's. Going to bring this up with her clothing designer tomorrow. She has had some issues with Trulicity several years ago-experiencing some nausea and abdominal discomfort. She is willing to try a GLP-1 and will have this discussion with Endo. Will see her back in the office in 3 to 4 months for her annual wellness. Immunizations Immunization Administration Dates Next Due Influenza Inactivated/Split Preservative Free IM 02/10/2020 Influenza, Quadrivalent (FLU CELVAX) MDCK, Preservative Free IM 03/07/2023 Influenza, Unspecified 02/07/2023 Pneumococcal Conjugate 20-Valent 12/18/2022 Pneumococcal Polysaccharide 23-Valent 09/29/2010 Tdap 12/15/2021 Zoster Vaccine Recombinant (Shingrix) 05/20/2022 ,12/18/2021 Family History Medical History Relation Name Comments Diabetes Brother Heart disease Brother Hyperlipidemia Brother Diabetes Father Diabetes Mother Relation Name Status Comments Brother Father Mother Social History Tobacco Use Types Packs/Day Years Used Date Smoking Tobacco: Never Smokeless Tobacco: Never Alcohol Use Standard Drinks/Week Comments Not Currently 0 (1 standard drink = 0.6 oz pur e alcohol) [facility] Utilities Answer Date Recorded In the past 12 months has th e electric, gas, oil, or water company threatened to shut off services in your home? No 04/06/2024 Social Connection and Isolation Panel Answer Date Recorded In a typical week, how many times do you talk on the phone with family, friends, or neighbors? Once a week 04/06/2024 Frequency of Social Gatherings with Friends and Family Not on file 04/06/2024 Attends Voodoo Services Not on file 04/06 Active Member [...] any time in the past 12 m [facility], were you homeless or living in a assisted (including now)? No 04/06/2024 Physical Activity Answer [...] Orientation Heterosexual (straight) 07/26 8:38 AM EST Last Filed Vital Signs Vital Sign Reading Time Taken Comments Blood Pressure 132/80 01/27/2025 7:44 AM EDT Pulse 78 01/27/2025 7:44 AM EDT Temperature 36.1 C (96.9 F) 01/27/2025 7:44 AM EDT Respiratory Rate 16 01/27/2025 7:44 AM EDT Oxygen Saturation 100% 01/27/2025 7:44 AM EDT Inhaled Oxygen Concentration - - Weight 87.6 kg (193 lb 3.2 oz) 01/27/2025 7:44 A M EDT Height 157.5 cm (5' 2 ) 01/27/2025 7:44 AM EDT Body Mass Index 35.34 01/27/2025 7:44 AM EDT Plan of Treatment Upcoming Encounters Date Type Department Care Team (Late st Contact Info) Description 05/14/2025 1:30 PM EST Office Visit [address] [phone] Geri Padilla APRN [address] [id number] 05/26/2025 11:30 AM EST Office Visit [address] [phone] Anika Stark PA-C [address] [place] [address] Health Maintenance Due Date Last Done Comments Advance Care Planning 1958 Ophthalmology Exam 1968 Microalbumin/Creatinine Ratio Urine 1976 Colonoscopy 2003 Hemoglobin A1C 05/12/2024 11/11/2023 Influenza Vaccine 12/18/2024 03/07/2023, , 02/10/2020 Foot Exam 12/25/2024 12/26/2023 Physical 12/25/2024 12/26/2023 Annual Wellness Visit 12/26/2024 12/26/2023 Creatinine with GFR 01/05/2025 01/06/2024, Lipid Panel 01/05/2025 01/06/2024 COVID-19 Vaccine ( season) 2025 DXA Bone Density (Females,Ages 65 and older) 03/16/2027 03/16/2025 Mammogram 03/16/2027 03/16/2025, 08/18, 04/26/2021, Additional history exists DTaP/Tdap/Td Vaccines (2 - Td or Tdap) 12/16/2031 12/15/2021 Zoster (Shingles) Vaccine Completed 05/20/2022, 05/2021 Pneumococcal Vaccines 50+ Completed 12/18/2022, Hepatitis B Vaccines Aged Out No long er eligible based on patient's age to complete this topic Hepatitis C Virus Screening Discontinued RSV Vaccine 50 years and older and Patients Discontinued Procedures Procedure Name Priority Date/Time Associated Diagnosis Comments BD BONE DENSITY STUDY - AXIAL Routine 03/16/2025 10:47 AM EDT MG SCREENING DIGITAL BREAST MELITON- BILATERAL Routine 03/16/2025 10:43 AM EDT LIPID PANEL WITH NONHDL Routine 01/06/2024 12:53 PM EDT Encounter for annual wellness exam in Medicare patient Mixed hyperlipidemia Polyp of colon, unspecified part of colon, unspecified type Type 2 diabetes mellitus without complication, with long-term current use of insulin (HCC) Mild intermittent asthma without complication COMPREHENSIVE METABOLIC PANEL Routine 01/06/2024 12:53 PM EDT Encounter for annual wellness exam in Medicare patient Mixed hyperlipidemia Polyp of colon, unspecified part of colon, unspecified type Type 2 diabetes mellitus without complication, with long-term current use of insulin (HCC) Mild intermittent asthma without complication HEMOGLOBIN A1C Routine 11/11/2023 from Last 3 Months or Most Recently Relevant to Health Maintenance Results * BD BONE DENSITY STUDY - AXIAL (03/16/2025 10:47 AM EDT) Anatomical Region Laterality Modality Other 03/16/2025 10:4 5 AM EDT 03/16/2025 10:45 AM EDT Impressions 03/18/2025 2:47 PM EDT 1. DIAGNOSIS: Normal bone density based on the lowest T-score value of 0.6 in the femoral neck applying World Health Organization criteria. 2. 10-YEAR FRACTURE RISK PREDICTION, FRAX: According to the guidelines, FRAX calculation should only be performed on patients in the osteopenia bone density category. Therefore, FRAX was not performed on this patient. 3. Treatment Recommendations: NOF guidelines recommend consideration for treatment in postmenopausal women and men age 50 and older presenting with the following: -A hip or vertebral (clinical or morphometric) fracture. -T-score less than or equal to -2.5 at the femoral neck or spine after appropriate evaluation to exclude secondary causes. -Low bone mass at the hip or spine and a 10-year fracture probability by FRAX of greater than or equal to 3% for hip fracture or greater than or equal to 20% for major osteoporotic fracture based on the [place] adapted WHO algorithm. 4. Other Recommendations: All treatment decisions require clinical judgment and consideration of individual patient factors, including patient preferences, comorbidities, previous drug use, risk factors not captured in the FRAX model (e.g. frailty, falls, vitamin D deficiency, increased bone turnover, interval significant decline in bone density) and possible under or overestimation of fracture risk by FRAX. FUTURE SCAN RECOMMENDATION: People with diagnosed cases of osteoporosis or at high risk for fracture should have regular bone mineral density tests. For patients eligible for Medicare, routine testing is allowed once every 2 years. The testing frequency can be increased to one year for patients who have rapidly progressing disease, those who are receiving or discontinuing medical therapy to restore bone mass, or have additional risk factors. Electronically signed by: Roscoe Coelho MD 03/18/2025 02:47 PM EDT Thank you for referring your patient to us, Roscoe Coelho MD [phone] (Electronically Signed - 03/18/2025 14:47) Copy: [facility]- [facility] [address] [place] [address] [facility] 03/18/2025 2:47 PM EDT EXAMINATION: BONE DENSITOMETRY CLINICAL INDICATION: Encounter for screening for osteoporosis. COMPARISON: This is the patients baseline examination. TECHNIQUE: Using a [employer] DD DXA system (software version: 14.10) manufactured by [employer], dual-energy x-ray absorptiometry was performed of the lumbar spine and left hip. The images are of good technical quality. Summary results are attached. FINDINGS: AP SPINE L1-L4 (excluding L2 and L3): The data of L1-L4 has been changed to exclude the L2 and L3 vertebral bodies, because significant degenerative change at these levels may cause overestimation of lumbar spine density. BMD 1.402 g/cm2, Z-score 3.4, T-score 1.8, normal. LEFT FEMUR, NECK: BMD 1.125 g/cm2, Z-score 2.2, T-score 0.6, normal. LEFT FEMUR, TOTAL: BMD 1.228 g/cm2, Z-score 3.0, T-score 1.7, normal. IDENTIFIED RISK FACTORS: Menopause. HISTORY OF FRACTURE: None listed. MEDICATIONS: None listed. Procedure Note Roscoe Coelho MD - 03/18/2025 EXAMINATION: BONE DENSITOMETRY CLINICAL INDICATION: Encounter for screening for osteoporosis. COMPARISON: This is the patients baseline examination. TECHNIQUE: Using a [employer] Advance DXA system (software version:14.10) manufactured by [employer], dual-energy x-rayabsorptiometry was performed of the lumbar spine and left hip. The imagesare of good technical quality. Summary results are attached. FINDINGS: AP SPINE L1-L4 (excluding L2 and L3): The data of L1-L4 has been changedto exclude the L2 and L3 vertebral bodies, because significantdegenerative change at these levels may cause overestimation of lumbarspine density. BMD 1.402 g/cm2, Z-score 3.4, T-score 1.8, normal. LEFT FEMUR, NECK: BMD 1.125 g/cm2, Z-score 2.2, T-score 0.6, normal. LEFT FEMUR, TOTAL: BMD 1.228 g/cm2, Z-score 3.0, T-score 1.7, normal. IDENTIFIED RISK FACTORS: Menopause. HISTORY OF FRACTURE: None listed. MEDICATIONS: None listed. IMPRESSION: 1. DIAGNOSIS: Normal bone density based on the lowest T-score value of 0.6in the femoral neck applying World Health Organization criteria. 2. 10-YEAR FRACTURE RISK PREDICTION, FRAX: According to the guidelines,FRAX calculation should only be performed on patients in the osteopeniabone density category. Therefore, FRAX was not performed on thispatient. 3. Treatment Recommendations: NOF guidelines recommend consideration fortreatment in postmenopausal women and men age 50 and older presenting withthe following: -A hip or vertebral (clinical or morphometric) fracture. -T-score less than or equal to -2.5 at the femoral neck or spine afterappropriate evaluation to exclude secondary causes. -Low bone mass at the hip or spine and a 10-year fracture probability byFRAX of greater than or equal to 3% for hip fracture or greater than orequal to 20% for major osteoporotic fracture based on the [place] adapted WHOalgorithm. 4. Other Recommendations: All treatment decisions require clinicaljudgment and consideration of individual patient factors, includingpatient preferences, comorbidities, previous drug use, risk factors notcaptured in the FRAX model (e.g. frailty, falls, vitamin D deficiency, increased bone turnover, interval significantdecline in bone density) and possible under or overestimation of fracturerisk by FRAX. FUTURE SCAN RECOMMENDATION: People with diagnosed cases of osteoporosis or at high risk for fractureshould have regular bone mineral density tests. For patients eligible forMedicare, routine testing is allowed once every 2 years. The testingfrequency can be increased to one year for patients who have rapidly progressing disease, those who arereceiving or discontinuing medical therapy to restore bone mass, or haveadditional risk factors. Electronically signed by: Roscoe Coelho MD 03/18/2025 02:47 PM EDT RPWorkstation: [id number] Thank you for referring your patient to us, Roscoe Coelho MD [phone] (Electronically Signed - 03/18/2025 14:47) Copy: [facility] [address] [facility] [address] [place] [address] Sonia Cabello MD IMG LEGACY PROCEDURES Final Result * MG SCREENING DIGITAL BREAST MELITON- BILATERAL (03/16/2025 10:43 AM EDT) Anatomical Region Laterality Modality Other 03/16/2025 10:1 5 AM EDT 03/16/2025 10:15 AM EDT Impressions 03/20/2025 3:24 PM EDT RIGHT BREAST: There is no mammographic evidence of malignancy. LEFT BREAST: There is no mammographic evidence of malignancy. FINAL ASSESSMENT: BI-RADS 1: Negative. RECOMMENDATIONS: Routine annual screening mammography. The patient will receive a lay summary of the results of this breast imaging exam. Lay summaries for mammography examinations will also identify the patients personal breast tissue composition as required by state law. Electronically signed by: Malia Cardoso MD 03/20/2025 03:24 PM EDT Thank you for referring your patient to us, Malia Rajan [phone] (Electronically Signed - 03/20/2025 15:24) Copy: [facility] [address] [place] [address] Narrative 03/20/2025 3:24 PM EDT EXAMINATION: MM SCREENING DIGITAL BREAST TOMOSYNTHESIS, BILATERAL CLINICAL INFORMATION: Routine annual screening mammography. COMPARISON: Relavant prior imaging. TECHNIQUE: Examination was performed using full breast technique. Tomosynthesis views of both breasts were obtained at 1 mm increments. Computer-aided detection was utilized by the radiologist in the interpretation of this exam. The following digital mammographic views were obtained: Bilateral CC and MLO views FINDINGS: There are scattered areas of fibroglandular density (breast composition category: b). Patients in categories c and d may qualify for supplemental screening exams. Right Breast: There are no suspicious masses, grouped calcifications or architectural distortion. Left Breast: There are no suspicious masses, grouped calcifications or architectural distortion. Procedure Note Malia Cardoso MD - 03/20/2025 EXAMINATION: MM SCREENING DIGITAL BREAST TOMOSYNTHESIS, BILATERAL CLINICAL INFORMATION: Routine annual screening mammography. COMPARISON: Relavant prior imaging. TECHNIQUE: Examination was performed using full breast technique. Tomosynthesis viewsof both breasts were obtained at 1 mm increments. Computer-aided detectionwas utilized by the radiologist in the interpretation of this exam. The following digital mammographic views were obtained: Bilateral CC andMLO views FINDINGS: There are scattered areas of fibroglandular density (breast compositioncategory: b). Patients in categories c and d may qualify for supplementalscreening exams. Right Breast: There are no suspicious masses, grouped calcifications orarchitectural distortion. Left Breast: There are no suspicious masses, grouped calcifications orarchitectural distortion. IMPRESSION: RIGHT BREAST: There is no mammographic evidence of malignancy. LEFT BREAST: There is no mammographic evidence of malignancy. FINAL ASSESSMENT: BI-RADS 1: Negative. RECOMMENDATIONS: Routine annual screening mammography. The patient will receive a lay summary of the results of this breastimaging exam. Lay summaries for mammography examinations will alsoidentify the patients personal breast tissue composition as required [facility] law. Electronically signed by: Malia Cardoso MD 03/20/2025 03:24 [facility] Thank you for referring your patient to us, Malia Rajan [phone] (Electronically Signed - 03/20/2025 15:24) Copy: [facility] [address] [place] [address] us Sonia Cabello MD IMG LEGACY PROCEDURES Final Result * (ABNORMAL) Lipid panel with nonHDL (01/06/2024 12:53 PM EDT) Cholesterol, Total 136 <200 mg/dL [facility] Cholesterol, HDL 48(L) > OR = 50 mg/dL [facility] Triglycerides 174(H) <150 mg/dL [facility] LDL Cholesterol 63 mg/dL (calc) [facility] Comment: Reference range: <100 Desirable range <100 mg/dL for primary prevention; <70 mg/dL for patients with CHD or diabetic patients with > or = 2 CHD risk factors. LDL-C is now calculated using the Sim calculation, which is a validated novel method providing better accuracy than the Friedewald equation in the estimation of LDL-C. Bertrand SS et al. JULIÁN. 2013;310(19): 7888-9116 (http://education.Simplificare/faq/OSJ539) Cholesterol/HDL Ratio 2.8 <5.0 (calc) [facility] Non HDL Chol. (LDL+VLDL) 88 <130 mg/dL (calc) [facility] Comment: For patients with diabetes plus 1 major ASCVD risk factor, treating to a non-HDL-C goal of <100 mg/dL (LDL-C of <70 mg/dL) is considered a therapeutic option. Blood Blood specimen / Unknown 01/06/2024 12:53 PM EDT 01/06/2024 12:58 PM EDT Narrative [facility] - 01/07/2024 4:06 PM EDT FASTING:NO FASTING: NO Anika Stark PA-C LAB BLOOD ORDERABLE S Final Result [facility] [address] [place] [phone] * (ABNORMAL) Comprehensive Metabolic Panel (01/06/2024 12:53 PM EDT) Glucose 270(H) 65 - 139 mg/dL [facility] Comment: Non-fasting reference interval Blood Urea Nitrogen (BUN) 20 7 - 25 mg/dL [facility] Creatinine 0.87 0.50 - 1.05 mg/dL [facility] Creatinine w/ eGFR 74 > OR = 60 mL/min/1. 73m2 [facility] BUN/Creatinine Ratio SEE NOTE: 6 - 22 (calc) [facility] Comment: Not Reported: BUN and Creatinine are within reference range. Sodium 137 135 - 146 mmol/L [facility] Potassium 4.3 3.5 - 5.3 mmol/L [facility] Chloride 101 98 - 110 mmol/L [facility] CO2 25 20 - 32 mmol/L [facility] Calcium 10.3 8.6 - 10.4 mg/dL [facility] Protein, Total 6.6 6.1 - 8.1 g/dL [facility] Albumin 4.4 3.6 - 5.1 g/dL [facility] Globulin 2.2 1.9 - 3.7 g/dL (calc) [facility] Albumin/Globuli n Ratio 2.0 1.0 - 2.5 (calc) [facility] Bilirubin, Total 0.3 0.2 - 1.2 mg/dL [facility] Alkaline Phosphatase 27(L) 37 - 153 U/L [facility] Aspartate Aminotrans (AST) 15 10 - 35 U/L [facility] Alanine Aminotrans (ALT) 23 6 - 29 U/L [facility] Blood Blood specimen / Unknown 01/06/2024 12:53 PM EDT 01/06/2024 12:58 PM EDT Narrative [facility] - 01/07/2024 4:06 PM EDT FASTING:NO FASTING: NO us Anika Stark PA-C LAB BLOOD ORDERABLE S Final Result [facility] [address] [place] [phone] * Hemoglobin A1C (11/11/2023) Hemoglobin A1C 7.7 % Comment:In care everywhere Blood Blood specimen / Unknown 11/11/2023 us External Provider LAB BLOOD ORDERABLES Final Result from Last 3 Months or Most Recently Relevant to Health Maintenance Insurance [facility] MEDICARE OUT OF NETWORK Care Teams Ski Edge Painter Relationship Specialty Start Date End Date Anika Stark PA-C [address] [place] [address] PCP - General Internal Medicine 08/13/23 Fabiana Rodríguez MD [address] [place] [address] [place] [address] Endocrinology 08/13/23
[2025-05-04 20:38] VITALS: PULSE 135
[2025-05-04 20:42] VITALS: BP 125/81; PULSE 135; RESP 16; TEMP 37.7; O2SAT 95
[2025-05-04 21:29] LABS: Troponin-I High Sensitivity 5.9 ng/L (<3.5-17.0)
[2025-05-04 22:04] LABS: Resp Syncy Virus RNA Qual PCR NEGATIVE (Negative); SARS COV2 PCR INHOUSE NEGATIVE (Negative)
[2025-05-04] MEDS: iohexoL 350 MG/ML 100 ML INFUS..BTL 65 ML IV (22:06)
[2025-05-04 23:23] VITALS: BP 131/66; PULSE 106; RESP 20; TEMP 37; O2SAT 96
[2025-05-05] VITALS: BP 131/66; PULSE 95; RESP 20; TEMP 37; O2SAT 96
[2025-05-05 00:53] LABS: Atypical Lymph Absolute Manual 0.2 x10*3/uL; Atypical Lymphs Percent Manual 1 % (0-6); Lymphocytes Absolute Manual 1.6 X10*3/uL (1.2-4.9); Lymphocytes Percent Manual 9 % (20-40); Monocytes Absolute Manual 1.6 X10*3/uL (0.1-1.2); Monocytes Percent Manual 9 % (2-11); Neutrophils Percent Manual 81 % (45-73)
[2025-05-05 01:00] VITALS: BP 131/66; PULSE 95; RESP 20; TEMP 37; O2SAT 96
[2025-05-05 01:06] LABS: Appearance Urine Clear; Glucose Urine UA >=1000 mg/dL (Negative); PH 5.5 (5.0-9.0); Specific Gravity - Urine >= 1.030 (1.005-1.025); UMIC TRIGGER UACC YES
[2025-05-05 01:10] LABS: Burr Cells 2+ (3-5) /OIF; RBC Morphology NOTED; Toxic Granulation PRESENT; Toxic Vacuolation PRESENT
[2025-05-05 01:11] LABS: Large Platelet PRESENT
[2025-05-05 08:58] LABS: Band Neutrophils Percent 0 % (3-5); Neutrophils Absolute Manual 14.8 X10*3/uL (2.0-8.3)
== END 2025-05-05 01:18 | disposition home or self-care (01) ==
PROVIDERS: Nurse Practitioner; Physician Assistant; Emergency Provider Emergency Medicine; PCP Physician Assistant Medical
DX: R07.89 Other chest pain (principal); N64.4 Mastodynia; M79.601 Pain in right arm; R00.0 Tachycardia, unspecified; Z03.818 Encounter for observation for suspected exposure to other biological agents ruled out; E78.5 Hyperlipidemia, unspecified; E11.9 Type 2 diabetes mellitus without complications; Z79.84 Long term (current) use of oral hypoglycemic drugs; I10 Essential (primary) hypertension
CPT/HCPCS: 36415; 71046; 71275; 74176; 80053; 81001; 83605; 83880; 84484; 85007; 85025; 85610; 85730; 86140; 87040; 87637; 93005; 96361; 96374; 99285; J1885; Q9967

== ENCOUNTER → 2025-05-04 16:14 | Outpatient (BNV) | payer MEDICARE, SELFPAY | PROVIDERS: Emergency Provider Emergency Medicine; PCP Physician Assistant Medical; Visit Provider Internal Medicine Cardiovascular Disease | DX: R00.0 Tachycardia, unspecified (principal) | CPT/HCPCS: 93010 ==

== ENCOUNTER → 2025-05-04 16:15 | Outpatient (BNV) | payer MEDICARE, SELFPAY | PROVIDERS: PCP Physician Assistant Medical; Visit Provider Radiology Diagnostic Radiology | DX: Z03.89 Encounter for observation for other suspected diseases and conditions ruled out (principal) | CPT/HCPCS: 71046 ==